=== PATIENT | female | born 1985 | race African-American/Black ===

== ENCOUNTER 2016-10-16 20:01 | Emergency (ER) | payer OTHER ==
[2016-10-16 19:40] LABS: URINE SOURCE CLEAN CATCH
[2016-10-16 19:43] LABS: URINE APPEARANCE HAZY; URINE BILIRUBIN NEG (NEG); URINE BLOOD NEG (NEG); URINE COLOR YELLOW; URINE GLUCOSE 100 MG/DL (NORM); URINE KETONE TRACE (NEG); URINE LEUKOCYTE ESTERASE TRACE (NEG); URINE NITRATE NEG (NEG); URINE PH 5.5 (5-8); URINE PROTEIN TRACE (NEG); URINE SPECIFIC GRAVITY >=1.030 (1.003-1.035); URINE UROBILINOGEN 0.2 MG/DL (NORM)
[2016-10-16 19:45] LABS: MICRO INDICATED? YES
[2016-10-16 19:46] LABS: CULTURE INDICATED? NO; URINE BACTERIA NEG (NEG); URINE MUCUS PRESENT; URINE RBC 0-2 /[HPF] (0-2); URINE SQUAMOUS EPITHELIAL CELL MODERATE /[HPF]; URINE WBC 0-2 /[HPF] (0-5)
[~2016-10-16 20:01] MED LIST: AMARYL1 MG PO; ASPIRIN81 M1 PO; BACTRIM DS TABL1 TA1 PO; DIFLUCAN PO; FLEXERIL10 M1 PO; IBUPROFEN800 MG PO; METFORMIN PO; ROBAXIN500 MG PO; VOLTAREN75 MG PO; ZESTRIL5 MG PO
[2016-10-16 20:51] LABS: BASOPHIL% 0.4 % (0-2.5); EOSINOPHIL% 0.6 % (0.0-7.0); HEMOGLOBIN 15.3 gm/dL (12.0-16.0); LYMPHOCYTE# 0.7 X10e3 (1.0-3.5); LYMPHOCYTE% 10.9 % (17.0-45.0); MEAN CELL VOLUME 88.1 FL (83-96); MEAN CORPUSCULAR HEMOGLOBIN 29.3 PG (28-34); MEAN CORPUSCULAR HGB CONC 33.3 g/dL (30-36); MEAN PLATELET VOLUME 8.4 FL (6.5-11.5); MONOCYTE# 0.2 X10e3 (0-1.0); MONOCYTE% 3.6 % (3.0-12.0); NEUTROPHIL# 5.7 X10e3 (1.5-7.1); NEUTROPHIL% 84.5 % (40-75); PLATELET COUNT 263 X10e3 (140-420); RED BLOOD COUNT 5.22 X10e (3.90-5.30); RED CELL DISTRIBUTION WIDTH 13.3 % (11.0-15.5); WHITE BLOOD COUNT 6.7 X10e3 (4.0-10.5)
[2016-10-16 20:54] LABS: DIFF IND NO
[2016-10-16 21:07] LABS: ALBUMIN SERUM 4.7 g/dL (3.5-5.0); BILIRUBIN,TOTAL 0.9 mg/dL (0.2-2.0); BUN/CREATININE RATIO 15.71; CALCIUM SERUM 8.9 mg/dL (8.4-10.2); CREATININE SERUM 0.7 mg/dL (0.6-1.4); GLOM FILT RATE Estimated 134.8 mL/min (>60); POTASSIUM 3.7 mmol/L (3.5-5.1); PROTEIN TOTAL SERUM 8.5 g/dL (6.0-8.3)
[2016-10-20 01:55] LABS: CHLAMYDIA TRACH Not Detected (Not Detected); N GONOR Not Detected (Not Detected)
== END 2016-10-16 21:57 | disposition home or self-care (01) ==
LOC: SED 20:01
PROVIDERS: Nurse Practitioner
DX: B34.9 Viral infection, unspecified (principal); E11.9 Type 2 diabetes mellitus without complications; Z79.84 Long term (current) use of oral hypoglycemic drugs; Z88.0 Allergy status to penicillin; Z88.1 Allergy status to other antibiotic agents
CPT/HCPCS: 36415; 80053; 81003; 84703; 85025; 87491; 87591; 87808; 87905; 96360; 99284